=== PATIENT | male | born 1950 | race Native Hawaiian/Other Pacific Islander ===

== ENCOUNTER 2020-02-22 01:44 | Emergency (ER) | payer OTHER ==
[~2020-02-22] VITALS: Ht 162.6 cm; Wt 36.3 kg
[2020-02-22 02:25] LABS: PLATELET COUNT 497 K/uL (142-355)
[2020-02-22 02:40] LABS: POTASSIUM 4.4 mmol/L (3.6-5.2)
[2020-02-22 03:07] VITALS: BP 150/68; TEMP 98.9
[2020-02-22] MEDS ORDERED: BUSPIRONE HYDROC5 MG PO (03:49)
[2020-02-22] MEDS ORDERED: TRAMADOL HYDROC50 MG PO (03:51)
[2020-02-22] MEDS ORDERED: ASPIRIN81 M1 PO (03:53)
[2020-02-22] MEDS ORDERED: DIVALPROEX250 M1 PO (03:55)
[2020-02-22] MEDS ORDERED: MIRALAX3350 N1 PO (03:57)
[2020-02-22] MEDS ORDERED: DOXYCYCL HYC100 M2 PO (04:00)
[2020-02-22] MEDS ORDERED: VITAMIN C500 M7 PO (04:01)
[2020-02-22] MEDS ORDERED: HYDR5TAB9 PO (04:08)
[2020-02-22] MEDS ORDERED: LIPITOR40 MG PO ×2 (04:10→04:20)
[2020-02-22] MEDS ORDERED: MELATONIN3 MG PO (04:12)
[2020-02-22] MEDS ORDERED: QUETIAPINE25 MG PO (04:14)
== END 2020-02-22 03:04 | disposition other institution (70) ==
LOC: ED 01:44
PROVIDERS: Family Medicine
DX: F25.8 Other schizoaffective disorders (principal); R46.89 Other symptoms and signs involving appearance and behavior; Z11.59 Encounter for screening for other viral diseases; Z04.6 Encounter for general psychiatric examination, requested by authority
CPT/HCPCS: 36415; 80053; 85027; 87635; 93005; 96372; 99283; 99285; J1630; J3486; U0002